=== PATIENT | male | born 1985 | race Caucasian/White ===

== ENCOUNTER → 2024-04-21 | Day surgery (SDC) | payer OTHER ==
[~2024-04-21] MED LIST: Iohexol 300 - 10 ML VIAL IV ONE; Lidocaine PF 2% (20 MG/ML) 2 ML VIAL IJ ONE; methylPREDNISolone acetate 80 MG/ML VIAL IJ ONE
== END ==
LOC: MSO 10:32
DX: M54.16 Radiculopathy, lumbar region (principal)
CPT/HCPCS: J1010; Q9967